=== PATIENT | female | born 1975 | race Hispanic/Latino ===

== ENCOUNTER 2020-12-14 15:16 | Emergency (ER) | payer OTHER ==
[~2020-12-14] VITALS: Ht 165.1 cm; Wt 72.0 kg
[2020-12-14] MEDS ORDERED: LEVOTHYROXIN50 MCG PO (15:39)
[2020-12-14 15:49] LABS: HEMATOCRIT 48.3 % (37.0-47.0); HEMOGLOBIN 16.1 g/dl (12.0-16.0); IMMATURE GRANULOCYTES 0.3 % (0.0-5.0); MEAN CELL VOLUME 109.8 fL CALC (80.0-100.0); MEAN CORPUSCULAR HGB 36.6 pG CALC (26.0-32.0); MEAN CORPUSCULAR HGB CONC 33.3 g/dL CAL (32.0-36.0); NEUT# 5.2 thou/uL (2.00-7.15); RED BLOOD COUNT 4.4 mill/uL (4.20-5.60); RED CELL DISTRI WIDTH 12.2 % (11.5-15.5)
[2020-12-14 16:05] LABS: ALBUMIN 4.8 g/dL (3.2-5.0); ALKALINE PHOSPHATASE 68 u/l (38-126); ANION GAP 12 (6-22 (CALC)); BILIRUBIN, TOTAL 0.7 mg/dL (0.0-1.4); BUN 7 mg/dL (7-17); BUN/CREATININE RATIO 14 (12-20 (CALC)); CARBON DIOXIDE 26 mmol/l (22-30); CHLORIDE 103 mmol/l (95-108); CREATININE 0.5 mg/dL (0.5-1.0); GFR > 60 ML/MIN (>=60 (CALC)); GFR FOR AFR.AMER. > 60 ML/MIN (>=60 (CALC)); POTASSIUM 4.1 mmol/l (3.5-5.1); SGOT/AST 34 u/l (14-36); SODIUM 138 mmol/l (137-146)
[2020-12-14] MEDS ORDERED: CEPHALEXIN500 MG PO (17:22)
[2020-12-14] MEDS ORDERED: BACTRIM DS1 TAB PO (17:22)
[2020-12-14 17:37] VITALS: BP 148/99
== END 2020-12-14 17:37 | disposition home or self-care (01) | DRG 585 ==
LOC: ED 15:16
PROVIDERS: Emergency Medicine
PROC: 0H9U0ZZ Drainage of Left Breast, Open Approach (ICD-10-PCS; principal; 2020-12-14)
DX: N61.1 Abscess of the breast and nipple (principal); B95.8 Unspecified staphylococcus as the cause of diseases classified elsewhere

== ENCOUNTER 2020-12-15 16:24 | Emergency (ER) | payer OTHER ==
[~2020-12-15] VITALS: Ht 165.1 cm; Wt 72.0 kg
[~2020-12-15 16:24] MED LIST: BACTRIM DS1 TAB PO; CEPHALEXIN500 MG PO; LEVOTHYROXIN50 MCG PO
[2020-12-15 17:45] VITALS: BP 131/89
== END 2020-12-15 17:55 | disposition home or self-care (01) | DRG 951 ==
LOC: ED 16:24
DX: Z48.01 Encounter for change or removal of surgical wound dressing (principal); F17.200 Nicotine dependence, unspecified, uncomplicated

== ENCOUNTER 2020-12-17 13:01 | Emergency (ER) | payer OTHER ==
[~2020-12-17] VITALS: Ht 165.1 cm; Wt 72.7 kg
[2020-12-17 14:14] VITALS: BP 151/73
== END 2020-12-17 14:14 | disposition home or self-care (01) | DRG 951 ==
LOC: ED 13:01
DX: Z48.01 Encounter for change or removal of surgical wound dressing (principal); F17.200 Nicotine dependence, unspecified, uncomplicated

== ENCOUNTER 2022-11-04 13:41 | Emergency (ER) | payer OTHER ==
[~2022-11-04] VITALS: Ht 165.1 cm; Wt 64.6 kg
[2022-11-04 17:09] VITALS: BP 154/91
== END 2022-11-04 17:05 | disposition left against medical advice (07) | DRG 951 ==
LOC: ED 13:41
DX: Z53.29 Procedure and treatment not carried out because of patient's decision for other reasons (principal)

== ENCOUNTER 2024-12-24 18:22 | Emergency (ER) | payer OTHER ==
[~2024-12-24] VITALS: Ht 165.1 cm; Wt 63.5 kg
[~2024-12-24 18:22] MED LIST changes: +DOXYCYCLINE100 MG PO; +LISINOPRIL10 MG PO; +TOBRAMYCIN0.31 TOP; +VISINE-A TOP
[2024-12-24 18:32] VITALS: BP 158/98
[2024-12-24] MEDS ORDERED: MAXITROL0.11 OD (18:41)
[2024-12-24] MEDS ORDERED: AMOX/K CLAV875 M1 PO (18:50)
[2024-12-24 18:56] VITALS: BP 159/98
== END 2024-12-24 19:02 | disposition home or self-care (01) | DRG 125 ==
LOC: ED 18:22
DX: H10.9 Unspecified conjunctivitis (principal); J32.9 Chronic sinusitis, unspecified; I10 Essential (primary) hypertension; F17.210 Nicotine dependence, cigarettes, uncomplicated